=== PATIENT | male | born 1960 | race Two or more races ===

== ENCOUNTER → 2024-09-18 | Emergency (ER) | payer OTHER ==
[~2024-09-18] VITALS: Ht 182.9 cm; Wt 111.1 kg
[~2024-09-18] MED LIST: ATORVASTATIN CA40 MG PO; KETOROLAC TROMETHAMINE 60 MG VIAL IM ONE; LISINOPRIL10 MG PO; ORPHENADRINE CITRATE 30 MG/ML AMPUL IM ONE; ORPHENADRINE CITRATE 30 MG/ML AMPUL ONE
== END | disposition home or self-care (01) ==
LOC: ER 09:34
DX: S52.121A Displaced fracture of head of right radius, initial encounter for closed fracture (principal); G89.11 Acute pain due to trauma; V87.8XXA Person injured in other specified noncollision transport accidents involving motor vehicle (traffic), initial encounter; Y93.89 Activity, other specified; Y92.89 Other specified places as the place of occurrence of the external cause; S43.101A Unspecified dislocation of right acromioclavicular joint, initial encounter